=== PATIENT | male | born 1960 | race Caucasian/White ===

== ENCOUNTER 2016-07-23 03:35 | Emergency (ER) | payer OTHER | END 2016-07-23 03:57 | disposition home or self-care (01) | LOC: ED 03:35 | DX: S90.411A Abrasion, right great toe, initial encounter (principal); L03.031 Cellulitis of right toe; X58.XXXA Exposure to other specified factors, initial encounter; Y93.H3 Activity, building and construction; Y92.71 Barn as the place of occurrence of the external cause ==